=== PATIENT | female | born 1980 | race American Indian/Alaskan Native ===

== ENCOUNTER 2018-12-07 16:05 | Outpatient (CLI) | payer MEDICAID, OTHER ==
[2018-12-07 16:21] VITALS: BP 103/64
[2018-12-07] MEDS ORDERED: LACTATED RINGERS 500 ML IV ONE (17:00)
--- NOTE | 2018-12-07 18:14 | Ultrasound Report ---
PROCEDURE: US OB BPP WO NON-STRESS TECHNIQUE: Sonographic evaluation for breathing, movement, tone, and amniotic flui d volume was performed. HISTORY: placenta presentation, . LMP 04/22/2018 with age 32 weeks 5 days and EDC 01/27/2019 COMPARISONS: None . FINDINGS: FETUS Amniotic fluid volume Normal-score 2. At least one vertical pocket >2 cm or more in vertical axis . breathing: Normal-score 2 . movement: Normal-score 2 . tone: Normal-score 2 . Score: 8 of 8 . IMPRESSION: Normal biophysical profile . This document is electronically signed by Silvia Cohen MD., December 07 2018 06:12:05 PM ET
--- NOTE | 2018-12-07 18:17 | Ultrasound Report ---
PROCEDURE: US OB LIMITED TECHNIQUE: Real-time limited sonographic examination was performed for evaluation of each fetus with image documentation (1 or more fetuses). HISTORY: presentation, placenta position LMP 04/1318/with age 32 weeks 5 days and EDC 01/27/2019 COMPARISONS: None FINDINGS: MATERNAL Uterus: Within normal limits Internal Os: closed FETUS IUP: Single living intrauterine Position: Cephalic Placental position: Anterior, grade 1, without previa. Amniotic fluid volume: Normal Heart rate and rhythm: 123 BPM, Regular IMPRESSION: 1. Single living intrauterine gestation at approximately 32 weeks 5 days 2. EDC by US with 01/27/2019 3. The fetus is cephalic and the placenta is located anterior without previa This document is electronically signed by Silvia Cohen MD., December 07 2018 06:14:54 PM ET
== END 2018-12-07 18:42 | disposition home or self-care (01) ==
LOC: TRG 16:05
PROVIDERS: ATTEND Obstetrics & Gynecology
DX: O47.03 False labor before 37 completed weeks of gestation, third trimester (principal); O46.93 Antepartum hemorrhage, unspecified, third trimester; Z3A.32 32 weeks gestation of pregnancy
CPT/HCPCS: 76815; 76819

== ENCOUNTER 2019-01-16 18:35 | Outpatient (CLI) | payer MEDICAID ==
[2019-01-16 18:58] VITALS: BP 102/59
--- NOTE | 2019-01-16 23:24 | Ultrasound Report ---
OB Ultrasound HISTORY: well being. TECHNIQUE: Grayscale and color Doppler imaging performed. COMPARISON: None FINDINGS: There is a single intrauterine gestation which is cephalic in presentation. Placenta is pos itioned anteriorly the LOAN is 10. The overall EGA is 38 weeks and 3 days with an estimated delivery d ate of 01/27/2019. Heart rate is 134 bpm. On biophysical profile, the fetus received a score of 2 for breathing movements, movement, posture, and LOAN. Total score was 8 out of 8. IMPRESSION: 1. Single viable intrauterine gestation as above. 2. Normal biophysical profile. Signer Name: Rafael Becker MD Signed: 01/16/2019 11:20 PM Workstation Name: [id number]
--- NOTE | 2019-01-17 02:57 | Progress Note ---
Assessment and Plan A: at 38 weeks, 3 days gestation. Not in active labor. BPP 01/15. P: Discussed with patient signs of labor, warning signs, daily movement counting. Return when in active labor. Keep scheduled appointment at [facility]. Subjective - Subjective Date of service: 01/16/19 Principal diagnosis: at 38 weeks, 3 days gestation Interval history: 38 year old presents to rule out labor. Patient states she has a slimy discharge which sometimes feels wet. Patient denies vaginal bleeding. Patient reports: movement normal, no vaginal bleeding Objective - Vital Signs Vital Signs: Vital Signs - 12hr 01/16/19 01/16/19 18:56 19:07 Temperature 98.5 F Pulse Rate 87 87 Respiratory 16 Rate Blood Pressure 102/59 Blood Pressure 102/59 [Left] - Exam Cardiovascular: Regular rate, Normal S1, Normal S2 Lungs: Clear to auscultation Abdomen: Present: normal appearance, soft. Absent: distention, tenderness, guarding, rigidity Uterus: Present: normal, fundal height above umbilicus. Absent: tenderness FHR: category 1 Uterine Contraction Monitor Mode: External Cervical Dilatation: 3.5 Cervical Effacement Percentage: 80 station: -3 Uterine Contraction Pattern: Irregular Uterine Contraction Intensity: Mild Extremities: normal
== END 2019-01-16 23:25 | disposition home or self-care (01) ==
LOC: TRG 18:35
PROVIDERS: ATTEND Obstetrics & Gynecology
DX: O47.1 False labor at or after 37 completed weeks of gestation (principal); Z3A.38 38 weeks gestation of pregnancy
CPT/HCPCS: 59025; 76816; 76819

== ENCOUNTER 2019-01-17 22:12 | Inpatient (IN) | payer MEDICAID ==
[2019-01-18] MEDS ORDERED: XYLOCAINE 2% INFILTRATI ONE ×2 (03:55→03:57)
[2019-01-18] MEDS ORDERED: BRETHINE SUB-Q PRN (03:55)
[2019-01-18] MEDS ORDERED: AMPICILLIN/NS 2 GM/100 ML 2 GM/100 ML BAG IV ONE (03:55)
[2019-01-18] MEDS ORDERED: PITOCin/NS 20 UNIT/1000ML DRIP 20 UNITS/1,000 ML BAG IV SCH ×2 (04:00→19:00)
--- NOTE | 2019-01-18 04:01 | History and Physical Report ---
History of Present Illness Date of examination: 01/18/19 Date of admission: 01/18/19 Chief complaint: Labor History of present illness: 38 year old presents to L&D in active labor. Patient reports regular contractions. She denies vaginal bleeding or leaking of fluid. Patient received care at [facility]. Limited records are available. LMP 04/22/18. EDC 01/27/19. significant for the following: anemia (supplemented with iron), late transfer of care at 35 weeks, advanced maternal age, GBS positive. lab results are not all available; these have been ordered on admission. Gonorrhea negative, chlamydia negative, trichomonas negative, GBS positive. 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 denies: smoking, alcohol abuse, prescription drug abuse, IV drug use - Obstetrical History Expected Date of Delivery: 01/27/19 Actual Gestation: 38 Week(s) 5 Day(s) : 4 Para: 3 Hx # Term Pregnancies: 3 Number of Pregnancies: 0 Spontaneous Abortions: 0 Induced : 0 Number of Living Children: 3 Medications and Allergies Allergies Allergy/AdvReac Type Severity Reaction Status Date / Time No Known Allergies Allergy Verified 01/18/19 00:08 Active Meds: Active Medications Ephedrine Sulfate (Ephedrine Sulfate) 10 mg IV Q2M PRN PRN Reason: Hypotension Fentanyl (Sublimaze) 100 mcg IV Q2H PRN PRN Reason: Labor Pain Oxytocin/Sodium Chloride (Pitocin/Ns 20 Unit/1000ml Drip) 20 units in 1,000 mls @ 125 mls/hr IV DIRECT RORO Lactated Ringer's (Lactated Ringers) 1,000 mls @ 125 mls/hr IV DIRECT RORO Ampicillin Sodium (Ampicillin/Ns 2 Gm/100 Ml) 2 gm in 100 mls @ 100 mls/hr IV ONCE ONE; Protocol Stop: 01/18/19 04:54 Ampicillin Sodium (Ampicillin/Ns 1 Gm/50 Ml) 1 gm in 50 mls @ 100 mls/hr IV Q4HR RORO; Protocol Lidocaine (Xylocaine 2%) 20 ml INFILTRATI ONCE ONE Stop: 01/18/19 03:58 Terbutaline Sulfate (Brethine) 0.25 mg SUB-Q ONCE PRN PRN Reason: Hyperstimulation/Hypertonicity Review of Systems All systems: negative (contractions) - Vital Signs Vital signs: Vital Signs Pulse BP 84 113/62 01/17/19 22:50 01/17/19 22:50 Temp Pulse Resp BP Pulse Ox 97.6 F 78 18 110/69 01/17/19 23:25 01/18/19 03:03 01/17/19 23:25 01/18/19 03:03 - Physical Exam Abdomen: Positive: normal appearance, soft. Negative: distention, tenderness, guarding, rigidity Genitourinary (Female): Positive: normal external genitalia, normal perenium. Negative: perineal/vulvar lesions Vagina: Positive: normal moisture Uterus: Positive: enlarged. Negative: tender Anus/Rectum: Positive: normal perianal skin Extremities: Positive: normal. Negative: tenderness, edema - Obstetrical FHR: category 1 Uterine Contraction Monitor Mode: External Cervical Dilatation: 5 Cervical Effacement Percentage: 90 station: -1 Uterine Contraction Pattern: Regular Uterine Contraction Intensity: Moderate Results All other labs normal. Assessment and Plan A: at 38 weeks, 5 days gestation. Active labor. GBS positive. No labs available. P: Admit. Continuous EFM. Draw labs. GBS prophylaxis.
[2019-01-18] MEDS: SUBLIMAZE IV PRN ×2 (04:50→07:20)
[2019-01-18] MEDS: LACTATED RINGERS 1,000 ML IV SCH ×4 (04:52→17:40)
[2019-01-18 04:55] LABS: Hemoglobin 12.6 gm/dl (10.1-14.3); Mean Corpuscular HGB Conc 34 % (30-34); Mean Corpuscular Volume 99 fl (79-97); Platelet Count 160 K/mm3 (140-440); Red Blood Count 3.73 M/mm3 (3.65-5.03); Red Cell Distribution Width 14.1 % (13.2-15.2)
[2019-01-18] MEDS: AMPICILLIN/NS 1 GM/50 ML 1 GM/50 ML BAG IV SCH ×3 (07:14→14:53)
[2019-01-18 07:24] LABS: Hepatitis C Virus Antibody Non-Reactive (NonReactive)
[2019-01-18] MEDS ORDERED: MARCAINE 0.25% INFILTRATI ONE ×2 (11:42→15:08)
--- NOTE | 2019-01-18 12:09 | Anesthesia Consultation ---
Anesthesia Consult and Med Hx Date of service: 01/18/19 - Airway Anesthetic Teeth Evaluation: Good ROM Head & Neck: Adequate Mental/Hyoid Distance: Adequate Mallampati Class: Class II Intubation Access Assessment: Good - Pulmonary Exam CTA: Yes - Cardiac Exam Cardiac Exam: RRR - Pre-Operative Health Status ASA Pre-Surgery Classification: ASA2, Emergency Proposed Anesthetic Plan: Epidural - Pulmonary Hx Asthma: No - Cardiovascular System Hx Hypertension: No - Central Nervous System Hx Seizures: No Hx Psychiatric Problems: No - Endocrine Hx Renal Disease: No Hx Hypothyroidism: No Hx Hyperthyroidism: No - Hematic Hx Anemia: Yes Hx Sickle Cell Disease: No - Other Systems Hx Alcohol Use: No
[2019-01-18] MEDS ORDERED: NARCAN 2 MG/2 ML IV PRN (12:10)
[2019-01-18] MEDS ORDERED: fentaNYL-BUPIV 2 MCG/ML-0.125% 200 MCG/100 ML BAG EPIDURAL SCH (13:00)
--- NOTE | 2019-01-18 15:20 | Event Note ---
Date: 01/18/19 Patient is now 5-6//-1. Category 1 heart rate tracing. Patient is comfortable since receiving epidural. Will augment labor with Pitocin. Discussed with patient risks and benefits of Pitocin augmentation of labor. Patient consented to Pitocin augmentation of labor.
[2019-01-18] MEDS ORDERED: PITOCin/NS 30 UNIT/500ML 30 UNITS/500 ML BAG IV SCH (16:00)
[2019-01-18] MEDS ORDERED: BICITRA PO SCH (18:03)
[2019-01-18] MEDS ORDERED: PEPCID IV ONE (18:03)
[2019-01-18] MEDS ORDERED: REGLAN IV SCH (18:03)
--- NOTE | 2019-01-18 18:03 | Event Note ---
Date: 01/18/19 Late appearing FHR decelerations noted with moderate variability and decrease in FHR baseline from 120s to 105-115. No change in vaginal exam. Patient has received IV fluid bolus and has been resting in left lateral position with oxygen per face mask at 10 LPM. Pitocin is off. Consulted with Dr. Oneil re: heart rate tracing and interventions taken. Dr. Oneil recommends delivery by section. Informed patient of Dr. Oneil's recommendation to deliver by section. Orders put in.
[2019-01-18] MEDS ORDERED: NARCAN 0.4 MG/1 ML IV PRN ×2 (18:06→19:45)
[2019-01-18] MEDS ORDERED: PHENERGAN PR PRN ×2 (18:06→19:45)
[2019-01-18] MEDS ORDERED: PHENERGAN PO PRN ×2 (18:06→19:45)
[2019-01-18] MEDS ORDERED: DILAUDID IV PRN (18:06)
[2019-01-18] MEDS ORDERED: ZOFRAN IV PRN ×2 (18:06→19:45)
--- NOTE | 2019-01-18 18:06 | Anesthesia Day of Surgery ---
Anesthesia Day of Surgery - Day of Surgery Patient Examined: Yes Patient H&P Reviewed: Yes Patient is NPO: Yes
[2019-01-18] MEDS ORDERED: XYLOCAINE 2%/ EPI 1:200,000 INFILTRATI ONE (18:20)
[2019-01-18] MEDS ORDERED: BENADRYL ONE (18:20)
[2019-01-18] MEDS ORDERED: TORADOL ONE (18:20)
[2019-01-18] MEDS ORDERED: ANCEF/STERILE WATER 2 GM/20 ML IV ONE (18:48)
[2019-01-18] MEDS ORDERED: VERSED IV ONE (18:58)
[2019-01-18] MEDS ORDERED: KETALAR ONE (19:00)
[2019-01-18] MEDS ORDERED: SODIUM CHLORIDE FLUSH SYRINGE 10 ML IV SCH ×2 (19:00→20:00)
[2019-01-18] MEDS ORDERED: LACTATED RINGERS 1,000 ML IV SCH (19:00)
[2019-01-18] MEDS ORDERED: ANCEF/STERILE WATER 2 GM/20 ML 2 GM/20 ML SYRINGE IV NR (19:00)
[2019-01-18] MEDS ORDERED: QUELICIN ONE (19:08)
[2019-01-18] MEDS ORDERED: MORPHINE ONE (19:18)
--- NOTE | 2019-01-18 19:33 | Procedure Note ---
OB Delivery Note - Delivery Date of Delivery: 01/18/19 Surgeon: DARIN BERNARD Estimated blood loss: 500cc - Section Preop diagnosis: nonreassuring FHR tracing section procedure: section, primary low transverse (Stat ( Full dictation to follow)) Disposition: PACU Complications: none Narrative: Stat ( Full dictation to follow) Nidia not functioning - Infant A at 1 minute: 3 at 5 minutes: 8 Gender: Male (7lbs 12oz)
--- NOTE | 2019-01-18 19:49 | Post Anesthesia Evaluation ---
- Post Anesthesia Evaluation Patient Participated: Yes Airway Patent: Yes Stable Respiratory Function: Yes Nausea/Vomiting: No Temp > 96.8F: Yes Pain Manageable: Yes Adequeate Hydration: Yes Anesthesia Complications: No Block Receding Appropriately: Yes Patient on Ventilator: No
[2019-01-18 22:54] LABS: Basophils % (Auto) 0.2 % (0.0-1.8); Hematocrit 35.4 % (30.3-42.9); Lymphocytes # (Auto) 0.7 K/mm3 (1.2-5.4); Lymphocytes % (Auto) 6.6 % (13.4-35.0); Mean Corpuscular HGB Conc 34 % (30-34); Mean Corpuscular Volume 100 fl (79-97); Monocytes # (Auto) 0.4 K/mm3 (0.0-0.8); Platelet Count 155 K/mm3 (140-440); Red Blood Count 3.55 M/mm3 (3.65-5.03); Red Cell Distribution Width 13.9 % (13.2-15.2)
[2019-01-18] MEDS: DILAUDID IV PRN (23:52)
[2019-01-19] MEDS: LACTATED RINGERS 1,000 ML IV SCH (02:55)
[2019-01-19] MEDS: DILAUDID IV PRN ×2 (03:13→06:47)
[2019-01-19] MEDS ORDERED: LACTATED RINGERS 1,000 ML IV ONE (10:30)
[2019-01-19] MEDS: FEOSOL PO SCH (10:38)
[2019-01-19] MEDS: PERCOCET 5/325 PO PRN ×2 (10:38→17:15)
[2019-01-19 11:28] LABS: Hematocrit 31.3 % (30.3-42.9); Hemoglobin 10.7 gm/dl (10.1-14.3)
[2019-01-19] MEDS: IBUPROFEN PO PRN ×2 (14:02→23:37)
--- NOTE | 2019-01-19 18:15 | Progress Note ---
Assessment and Plan - Patient Problems (1) S/P primary low transverse Current Visit: Yes Status: Acute Plan to address problem: POD 1 - unstable Continue routine postop orders Ambulation with assistance encouraged Abdominal binder ordered Anticipate discharge in 24-48 hours (2) Hypotension after procedure Current Visit: Yes Status: Acute Plan to address problem: Reports lightheadedness, dizziness upon getting up for the first time NO hematoma or active bleeding noted Orthostatic BP ordered IVF bolus given Subjective - Subjective Date of service: 01/19/19 Principal diagnosis: POD #1, s/p Primary LTCS Interval history: see H&P, Event Notes and OB Delivery Procedure Note Patient reports: appetite normal, voiding normally, dizzy ambulation, pain well controlled, ambulating normally, other (lightheadedness) [place]: doing well, other (breast and bottle feeding) Objective - Vital Signs Latest vital signs: Vital Signs Temp Pulse Resp BP BP BP Pulse Ox 01/19/19 13:43 97.8 F 80/53 89/55 01/19/19 13:22 97.6 F 71 18 88/50 100 01/19/19 12:52 97.8 F 18 112/69 01/19/19 11:13 114/62 01/19/19 09:46 98.1 F 82 18 83/43 98 01/19/19 07:17 18 01/19/19 06:47 18 01/19/19 05:54 98.5 F 81 18 90/46 97 01/19/19 03:43 18 01/19/19 03:13 18 01/19/19 02:04 98.1 F 80 18 99/51 97 01/19/19 00:22 16 01/18/19 22:03 18 01/18/19 21:33 18 01/18/19 21:31 97.6 F 89 18 108/77 100 01/18/19 20:45 97.5 F L 97 H 14 116/64 01/18/19 20:30 87 14 108/55 01/18/19 20:15 97.5 F L 101 H 14 102/47 100 01/18/19 20:00 98 H 14 96/42 01/18/19 19:55 102 H 14 98/42 01/18/19 19:50 99 H 14 97/40 01/18/19 19:45 97.1 F L 14 92/39 100 08/11/19 18:26 71 129/94 01/18/19 18:24 67 100 01/18/19 18:19 67 100 Intake and Output 01/19/19 01/19/19 01/19/19 07:59 15:59 23:59 Intake Total 1480 480 Output Total 1999 1500 Balance -520 -1020 Intake: IV 1000 Lactated Ringers 1,000 ml 1000 @ 125 mls/hr IV DIRECT RORO Rx#:[id number] Oral 360 Intake, Free Water 480 120 Output: Urine 2000 1500 Indwelling Catheter 2000 Void 1500 Other: Total, Intake Amount 360 Total, Output Amount 200 1000 # Voids Void 1 - Exam Cardiovascular: Present: Regular rate Lungs: Present: Clear to auscultation, Normal air movement Abdomen: Present: normal appearance, soft Vulva: both: normal Uterus: Present: normal, firm, fundal height at umbilicus Extremities: Present: normal Incision: Present: normal, dry, intact, dressed Comments: small lochia - Labs Labs: Abnormal lab results 01/18/19 Range/Units 22:36 RBC 3.55 L (3.65-5.03) M/mm3 MCV 100 H (79-97) fl MCH 34 H (28-32) pg Lymph % (Auto) 6.6 L (13.4-35.0) % Lymph # 0.7 L (1.2-5.4) K/mm3 Seg Neutrophils % 89.2 H (40.0-70.0) % Seg Neutrophils # 9.2 H (1.8-7.7) K/mm3
[2019-01-20] MEDS: PERCOCET 5/325 PO PRN ×3 (04:00→21:23)
[2019-01-20] MEDS: IBUPROFEN PO PRN ×3 (06:18→18:14)
[2019-01-20] MEDS: FEOSOL PO SCH (10:09)
--- NOTE | 2019-01-20 11:36 | Progress Note ---
Assessment and Plan (1) S/P primary low transverse Current Visit: Yes Status: Acute Plan to address problem: POD 2 - stable Continue routine postop orders Ambulation encouraged Discharge in 24-48 hours (2) Hypotension after procedure Current Visit: Yes Status: Acute Plan to address problem: Reports lightheadedness and dizziness has resolved NO hematoma or active bleeding noted Stable Subjective - Subjective Date of service: 01/20/19 Principal diagnosis: POD #2, s/p Primary LTCS Patient reports: appetite normal, voiding normally, pain well controlled, flatus, ambulating normally, no bowel movement : doing well Objective - Vital Signs Latest vital signs: Vital Signs Temp Pulse Resp BP BP BP Pulse Ox 01/20/19 08:43 98.5 F 84 18 99/64 100 01/20/19 07:05 18 01/20/19 06:18 18 01/20/19 05:00 18 01/20/19 04:00 20 01/20/19 00:37 18 01/20/19 00:00 98.8 F 77 16 114/72 01/19/19 23:37 18 01/19/19 13:43 97.8 F 80/53 89/55 01/19/19 13:22 97.6 F 71 18 88/50 100 01/19/19 12:52 97.8 F 18 112/69 Intake and Output 01/19/19 01/20/19 01/20/19 23:59 07:59 15:59 Intake Total 960 560 240 Balance 960 560 240 Intake: Oral 600 200 Intake, Free Water 360 360 240 Other: Total, Intake Amount 600 200 # Voids Void 1 1 2 - Exam Breasts: Present: normal, Cardiovascular: Present: Regular rate, Normal S1, Normal S2, No murmurs Lungs: Present: Clear to auscultation, Normal air movement Abdomen: Present: normal appearance, soft, tenderness (as expected post-op), normal bowel sounds. Absent: distention Vulva: both: normal Uterus: Present: firm, fundal height below umbilicus (-1) Extremities: Present: normal Incision: Present: normal (LTI closed with steri strips, CDI, no drainage. ), dry, intact
--- NOTE | 2019-01-20 11:38 | Discharge Summary ---
Providers - Providers Date of Admission: 01/18/19 04:34 Date of discharge: 01/21/19 Attending physician: INGRID ESPOSITO MD Primary care physician: INGRID ESPOSITO MD Hospitalization Delivery: Procedure: primary low transverse Procedure details: See H&P and delivery note Incision: normal (LTI, closed with SQ sutures and steri strips, CDI), dry, intact Disposition: DC-30 STILL A PATIENT Plan - Provider Discharge Summary Activity: routine, no sex for 6 weeks, no heavy lifting 4 weeks, no strenuous exercise Diet: routine Instructions: routine Additional instructions: [] Smoking cessation referral if applicable(refer to patient education folder for contact #) [] Refer to [facility]'s [facility] Book[facility] Call your doctor immediately for: * Fever > 100.5 * Heavy vaginal bleeding ( >1 pad per hour) * Severe persistent headache * Shortness of breath * Reddened, hot, painful area to leg or breast * Drainage or odor from incision. * Keep incision clean and dry at all times and follow doctor's instructions regarding bathing/showering - Follow up plan Follow up: INGRID ESPOSITO MD [Primary Care Provider] - 7 Days
[2019-01-21] MEDS: IBUPROFEN PO PRN ×2 (00:08→10:09)
[2019-01-21] MEDS: PERCOCET 5/325 PO PRN ×2 (06:10→16:41)
[2019-01-21] MEDS: FEOSOL PO SCH (10:09)
[2019-01-21] MEDS ORDERED: LACTATED RINGERS 1,000 ML IV ONE (11:26)
[2019-01-21] MEDS ORDERED: LANSINOH TP PRN (12:09)
--- NOTE | 2019-01-21 14:10 | Operative Report ---
Operative Report Operative Report: Date of procedure: 01/18/2019 Pre-operative diagnosis: Intrauterine at 38 weeks with arrest of labor, nonreassuring heart tracing and now with prolonged bradycardia Post-operative diagnosis: Same Procedure name(s): Stat primary low transverse section Surgeon: Karl Mcgovern MD Carton Folder: Anesthesia: Epidural spinal EBL: 600 mL Complications: None Findings: Normal uterus tubes and ovaries bilaterally. Male infant weight 7 lbs. 12 oz. Apgars 3 at 1 minute and 8 at 5 minutes Specimen(s): Placenta Indication: This is a patient of [facility] who had arrest of labor to wait for attending physician Dr. Oneil, [facility] for section. During this time the patient's heart tones decreased to 80 beats per minutes without recovery.I was in labor and delivery was asked for prolonged bradycardia. L Procedure: The patient was brought to the operating room in a stat fashion. Anesthesia was induced. She was then placed in left lateral tilt. Prepped and draped in the usual sterile manner. without difficulty. A Pfannenstiel incision was made. This incision was taken down to the fascia. The fascia was then nicked in the midline. This incision was extended out laterally with Moncada scissors. The fascia was then sharply and bluntly from the underlying rectus muscles. The rectus muscles were bluntly and sharply . The peritoneum was then entered with the rotary saw operator's fingers. This incision was s pread vertically with care not to damage the bladder below. Bladder blade was placed. The bladder flap was then formed sharply and bluntly with Metzenbaum scissors. Bladder blade replaced. A transverse incision was made in lower uterine segment. This incision was extended laterally with the operators fingers. The amniotic sac was then entered bluntly with the rotary saw operator's fingers. The infant was delivered from the vertex position. Bulb suction on the mother's abdomen. Cord was double clamped and cut. The was then passed to the nursery personnel who were in attendance. The above scores were given by the nursery personnel. The placenta was then bluntly removed. The uterus was then externalized and wiped clean the remaining products. The uterine incision was closed in layers. The first incision was closed in a locking manner using 0 Vicryl. This was followed by imbricating stitch also with 0 Vicryl. This closure was hemostatic after additional [id number] s uture was placed and left in the incision. The bladder flap was copiously irrigated and found to be hemostatic. The pelvis was copiously irrigated and found to be hemostatic. The uterus was then placed back to the patient's abdomen. Surgicel was placed along the uterine incision. The retractors were removed. The rectus muscles were inspected and found to be hemostatic. The fascia was then closed in a running manner using 0 Vicryl. This incision was hemostatic irrigation Bovie. The skin was reapproximated with 4-0 Vicryl subcuticularly. The patient tolerated procedure well. Her urine was clear. The infant was admitted to the well baby nursery. The patient was accompanied to recovery room in good condition. Instrument count correct 3.
[2019-01-21 16:32] VITALS: BP 100/60
== END 2019-01-21 20:35 | disposition home or self-care (01) | DRG 765 ==
LOC: TRG 22:12 → LD 01-18 04:34 → TRG 01-18 04:34 → OB 01-18 21:20
PROVIDERS: ADMIT Obstetrics & Gynecology; ATTEND Obstetrics & Gynecology
PROC: 10D00Z1 Extraction of Products of Conception, Low, Open Approach (ICD-10-PCS; principal; 2019-01-18)
DX: O76 Abnormality in fetal heart rate and rhythm complicating labor and delivery (principal); O99.43 Diseases of the circulatory system complicating the puerperium; Z37.0 Single live birth; Z3A.38 38 weeks gestation of pregnancy; O99.02 Anemia complicating childbirth; D64.9 Anemia, unspecified; O99.824 Streptococcus B carrier state complicating childbirth; I95.9 Hypotension, unspecified; O62.1 Secondary uterine inertia
CPT/HCPCS: 36415; 83036; 85014; 85018; 85025; 85027; 86592; 86706; 86762; 86803; 86850; 86900; 86901; 87806; 88307; G0378; A6250; J0290; J0330; J0690; J1170; J1200; J1885; J2250; J2270; J2405; J2590; J2765; J3010; J3105; J7120; Q0169

== ENCOUNTER 2019-01-28 13:06 | Outpatient (CLI) | payer MEDICAID ==
--- NOTE | 2019-01-28 14:31 | Vascular Lab Report ---
DUPLEX DOPPLER LOWER EXTREMITY VEINS, LEFT INDICATION: Acute embolism and thrombosis of unspecified deep veins of lower. Left leg swelling for 2 days. TECHNIQUE: Duplex doppler imaging was performed through the veins of the left lower extremity using venous compression and other maneuvers. COMPARISON: No relevant prior imaging study available. FINDINGS: Left Common femoral vein: Negative. Left Superficial femoral vein: Negative. Left Popliteal vein: Negative. Left Calf veins: Negative. Additional findings: None.. IMPRESSION: No sonographic evidence for DVT in the left lower extremity. Signer Name: Vasu Case Jr, MD Signed: 01/28/2019 2:26 PM Workstation Name: [id number]
== END 2019-01-28 13:07 | disposition home or self-care (01) ==
LOC: VAS 13:06
PROVIDERS: ATTEND Obstetrics & Gynecology
DX: I82.402 Acute embolism and thrombosis of unspecified deep veins of left lower extremity (principal); N18.6 End stage renal disease